=== PATIENT | male | born 1970 | race Two or more races ===

== ENCOUNTER 2020-06-12 23:16 | Emergency (ER) | payer SELFPAY ==
[~2020-06-12] VITALS: Ht 170.2 cm; Wt 65.5 kg
[2020-06-12 23:17] VITALS: BP 142/91
[2020-06-12] MEDS ORDERED: IBUPROFEN 200 MG TABLET PO ONE (23:30)
[2020-06-12] MEDS ORDERED: IBUPROFEN 600 MG TABLET ONE (23:34)
--- NOTE | 2020-06-12 23:39 | NUR ---
C/O DENTAL PAIN ( FRONT UPPER ) X 8 DAYS, YAKUT SPEAKING
== END 2020-06-13 00:10 | disposition home or self-care (01) ==
LOC: ED 06-13 00:01
DX: K04.7 Periapical abscess without sinus (principal); K02.9 Dental caries, unspecified; K08.89 Other specified disorders of teeth and supporting structures
CPT/HCPCS: 41800; 99284